=== PATIENT | female | born 2000 | race Caucasian/White ===

== ENCOUNTER 2020-03-12 02:15 | Emergency (ER) | payer SELFPAY ==
[2020-03-12 02:17] VITALS: BP 148/93; PULSE 106; RESP 16; TEMP 35.9; O2SAT 99; BMI 35.2
--- NOTE | 2020-03-12 02:28 | PC.NURSE ---
Addendum entered by Migdalia Briscoe 03/12/20 02:56: CONTINUE TO CHECK WAITING ROOM FOR PATIENT. THERE HAS BEEN NO SITE OF PATIENT AFTER BEING TRIAGED. PATIENT LEAVING WITHOUT TREATMENT. Original Note: PATIENT CALLED FOR BED ASSIGNMENT.
--- NOTE | 2020-03-12 02:33 | PC.NURSE ---
Pt walked out of the waiting room approximately 10 mins ago.
== END 2020-03-12 03:45 | disposition left against medical advice (07) ==
LOC: HO.ED 03:24
PROVIDERS: Emergency Provider Emergency Medicine
DX: R10.9 Unspecified abdominal pain (principal)
CPT/HCPCS: 99282

== ENCOUNTER 2023-07-26 16:15 | Emergency (ER) | payer OTHER, SELFPAY ==
[2023-07-26 16:30] VITALS: BP 131/90; PULSE 97; RESP 18; TEMP 37; O2SAT 99; BMI 36.9
--- NOTE | 2023-07-26 16:52 | ED_ITS ---
HPI - General Adult General Chief complaint: Eye Problems Stated complaint: left eye swollen Time Seen by Provider: 07/26/23 16:44 Source: patient, RN notes reviewed and old records reviewed Mode of arrival: ambulatory Limitations: no limitations History of Present Illness HPI narrative: 23-year-old female presents for evaluation of left upper eyelid swelling. Her symptoms started 3 days ago She reports a history of stye but they usually improved with warm compresses. She states despite using warm compresses her swelling appears to be getting worse She denies any fevers, chills, trauma to the eye, visual loss She reports falling to left upper eyelid She reports mild discomfort She reports watery discharge but no purulent drainage Related Data Previous Rx's Medication Instructions Recorded erythromycin 5 mg/gram (0.5 %) eye 0.5 inch ophthalmic (eye) TID 5 07/26/23 ointment days #3.5 grams Allergies Allergy/AdvReac Type Severity Reaction Status Date / Time clindamycin [CLINDAMYCIN] Allergy Unknown HIVES, SOB Verified 03/12/20 02:22 Sulfa (Sulfonamide Allergy Unknown hives Verified 03/12/20 02:22 Antibiotics) sulfamethoxazole Allergy Unknown HIVES, SOB Verified 03/12/20 02:22 [From BACTRIM] trimethoprim [From BACTRIM] Allergy Unknown HIVES, SOB Verified 03/12/20 02:22 vancomycin [VANCOMYCIN] Allergy Unknown HIVES, Verified 03/12/20 02:22 SOB, hives Clindamycin HCl Allergy Unknown hives Uncoded 02/04/19 00:00 Review of Systems Constitutional: Constitutional: Denies body ache(s), Denies chills and Denies fever(s) Eyes: Eyes: Denies blurry vision and Reports eye pain Cardiovascular: Cardiovascular: Denies chest pain and Denies dyspnea Respiratory: Respiratory: Denies cough and Denies dyspnea [facility] Past Medical History Medical History (Updated 07/26/23 @ 16:54 by Jonathan Alejo) No known health problems Social History Social History Advance Directives: No Advance Directives Information Provided: No Physical Exam ED Vital Signs: Vital Signs - 24 hr 07/26/23 16:30 Temperature 98.6 F Pulse Rate 97 Respiratory Rate 18 Blood Pressure 131/90 H Pulse Oximetry 99 Oxygen Delivery Method Room Air BMI result Body Mass Index 36.9 Eyes Other: Patient has mild left upper eyelid edema mostly to the left outside the eye. There is no significant erythema. There is some edema extending to about the level of the eyebrow. No fluctuance or induration. Again, no significant erythema around the orbit. The orbits themselves are nontender. Extraocular motions are intact in all cardinal directions without any pain or difficulty Visual Amos: normal visual amos by confrontation Eyelids: No eyelid abnormality Conjunctivae: conjunctivae normal Sclerae: sclerae normal Corneas: corneas normal Pupils: Equal, round and reactive pupils present Neuro Cranial nerves: Yes Equal, round and reactive pupils present Medical Decision Making Medical Decision Making MDM Narrative: 23-year-old female presents for evaluation of a left upper eyelid stye. She reports despite warm compresses there has been no improvement in her symptoms. There is very low suspicion for periorbital cellulitis or preseptal cellulitis. There is no significant erythema, no tenderness. Will treat with topical erythromycin ointment to the left eye and for underneath the left upper eyelid. Patient was encouraged to continue doing warm compresses and will be referred to Ophthalmology Differential Diagnosis Differential Diagnoses: The differential diagnosis associated with the presentation includes Hordeolum Stye Blepharitis Cellulitis Discharge Plan Discharge Clinical Impression: Blepharitis of eyelid of left eye Patient Disposition: Home, Self-Care Instructions: Blepharitis (ED) Additional Instructions: Continue warm compresses every 2 hours for 10-15 minutes to the left eye Apply topical erythromycin ointment t.i.d. for the next 5 days Return for new or worsening symptoms You may also follow-up with Dr. Santillan at the number provided Prescriptions: New erythromycin 5 mg/gram (0.5 %) ointment 0.5 inch ophthalmic (eye) TID 5 Days Qty: 3.5 0RF Referrals: Elvin Santillan [Physician] - (left eyelid blepharitis)
== END 2023-07-26 17:06 | disposition home or self-care (01) ==
PROVIDERS: Emergency Provider Emergency Medicine; PCP Internal Medicine
DX: H01.004 Unspecified blepharitis left upper eyelid (principal); Z79.899 Other long term (current) drug therapy
CPT/HCPCS: 99282; 99283